=== PATIENT | female | born 1995 | race Caucasian/White ===

== ENCOUNTER 2022-11-06 14:22 | Emergency (ER) | payer OTHER ==
[~2022-11-06] VITALS: Ht 162.6 cm; Wt 59.0 kg
[2022-11-06 14:22] VITALS: BP 147/106
--- NOTE | 2022-11-06 14:22 | NUR ---
ARRIVAL PT AMBULATES TO ED6 WITH C/O STERNAL CHEST PAIN THAT RADIATES TO LEFT SHOULDER THAT STARTED APPROX. 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 PT STATES SHE HAS A HX OF HTN AND ANXIETY, AND IS UNSURE IF EITHER ARE CAUSING THE PAIN. PT STATES PAIN IS OFF AND ON IN NATURE. RATES PAIN 9/10 DESCRIBED SHARP STABBING. VITALS OBTAINED. NOTIFIED OF PTS ARRIVAL.
[2022-11-06] MEDS ORDERED: TORADOL IM STA (14:34)
--- NOTE | 2022-11-06 14:36 | PCM.EKG ---
[facility] Test Date: 2022-11-06 Pat Name: SURYA DE LA VEGA Department: ER Room: Gender: F Director Of Email Marketing: ANI : 1995 Requested By: LENA ALVAREZ Order Number: [id number] Reading MD: Tylor Alvarez Measurements Intervals [place] Rate: 75 P: 74 MA: 129 QRS: 68 QRSD: 82 T: 48 QT: 402 QTc: 449 Interpretive Statements Sinus rhythm Compared to ECG 01/16/2018 14:50:38 No significant changes Electronically Signed On 11-07-2022 02:38:09 CDT by Tylor Alvarez Please click the below link to view image of tracing.
[2022-11-06] MEDS ORDERED: TORADOL ONE (14:39)
[2022-11-06 14:47] LABS: BASOPHIL % 0.7 % (0.0-0.2); EOSINOPHIL # 0.3 10^3/uL (0.0-0.2); EOSINOPHIL % 5.1 % (0.0-5.0); LYMPHOCYTES # 1.79 10^3/uL1 (1.0-4.8); LYMPHOCYTES % 32.5 % (24.0-44.0); MEAN CORP HGB 29.8 pg (26-34); MONOCYTES # 0.4 10^3/uL (0.3-0.8); MONOCYTES % 6.4 % (5.0-12.0); NEUTROPHILS % 55.1 % (41.0-85.0); RED CELL DISTRIBUTION WIDTH 11.8 % (11.5-14.5)
[2022-11-06 15:09] LABS: CARBON DIOXIDE 27.9 mmol/L (20.0-32); GLUCOSE 89 mg/dL (70-110)
[2022-11-06 15:13] VITALS: BP 131/91
--- NOTE | 2022-11-06 15:36 | DIREP ---
PROCEDURE:CHEST 1 VIEW COMPARISON:None. INDICATIONS:cp FINDINGS: LUNGS/PLEURA:No significant pulmonary parenchymal abnormalities. No effusion or pneumothorax. VASCULATURE:Normal. Unremarkable pulmonary vasculature. CARDIAC:Heart size is normal. MEDIASTINUM:Normal. No visible mass or adenopathy. BONES:Mild, right convexity, mid thoracic curvature. No acute abnormality. OTHER:Negative. CONCLUSION: No acute cardiopulmonary abnormality. Dictated by: Aba Aguilar MD on 11/06/2022 at 03:34 PM
--- NOTE | 2022-11-06 16:15 | ER.PDOC ---
General Chief Complaint: Chest Pain-Cardiac Nature Stated Complaint: POSSIBLE HIGH BP/CP Time seen by MD: 14:25 Source: patient, family Exam Limitations: no limitations History of Present Illness Initial Comments Patient is a 27-year-old female with a past medical history of anxiety hypertension and depression who comes in for having an episode of elevated blood pressure 20 minutes prior to arrival and chest pain as well. 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 Patient states that she went and saw all the school nurse school nurse took her blood pressure and it was systolics 180/110 the school nurse said you have to go immediately to the ER. Thus patient came to the ER. She does not know what makes her symptoms better or worse. Allergies: Coded Allergies: No Known Allergies (Unverified , 07/24/20) Past Medical History Medical History: hypertension, other Surgical History: other Family History Significant Family History: no pertinent family hx Social History Smoking: other (Vapes) Alcohol Use: occassionally Drug Use: marijuana Reviewed Nursing Reviewed: Vital Signs, Abn. Noted, Nursing Assessment Constitutional: no symptoms reported EENTM: no symptoms reported Respiratory: no symptoms reported Cardiovascular: chest pain (Hypertension) Gastrointestinal: no symptoms reported Genitourinary: no symptoms reported Musculoskeletal: no symptoms reported Skin: no symptoms reported Psychiatric/Neurological: anxiety Endocrine: no symptoms reported Hematologic/Lymphatic: no symptoms reported Physical Exam General Appearance: Anxious HEENT: PERRL/EOMI, Normal ENT Inspection, TMs Normal, Pharynx Normal Neck: Non-Tender, Full Range of Motion, Supple, Normal Inspection Respiratory: lungs clear, normal breath sounds, no respiratory distress, no accessory muscle use Cardiovascular: Normal Peripheral Pulses, Other (Patient's blood pressure 147/106 and she has reproducible chest pain along the left sternal border and left lateral chest wall) Gastrointestinal: Normal Bowel Sounds, Non Tender, Soft Extremities: Non-Tender Neurologic/Psychiatric: No Motor/Sensory Deficits, Alert Skin: Normal Color Lymphatic: No Adenopathy Results/Orders Results/Orders Orders - LENA DANIELS MD EKG (11/06/22 14:34) Xr Chest 1v (11/06/22 14:34) Cbc With Auto Diff (11/06/22 14:34) Comprehensive Metabolic Panel (11/06/22 14:34) Troponin I High Sensitivity (11/06/22 14:34) Hcg Qualitative Serum (11/06/22 14:34) Ketorolac Tromethamine (Toradol) (11/06/22 14:34) Ketorolac Tromethamine (Toradol) (11/06/22 14:39) Vital Signs Date Time Temp Pulse Resp B/P (MAP) Pulse Ox O2 Delivery O2 Flow Rate FiO2 11/06/22 15:13 98.2 71 24 131/91 (104) 99 Room Air* 0 21 11/06/22 14:22 98.2 70 24 99 11/06/22 14:22 98.2 70 24 11/06/22 14:22 98.2 70 24 147/106 (120) 99 Room Air* 0 21 Administered Medications Medications (Trade) Dose Ordered Sig/Charlie Route PRN Reason Start Time Stop Time Status Last Admin Dose Admin Ketorolac Tromethamine (Toradol) 15 mg OT STAT IM 11/06/22 14:34 11/06/22 14:36 DC 11/06/22 14:44 15 MG Laboratory Tests Test 11/06/22 14:42 White Blood Count 5.5 10^3/uL (4.5-11.0) Red Blood Count 4.97 10^6/uL (4.00-5.20) Hemoglobin 14.8 g/dL (12.0-15.0) Hematocrit 43.8 % (36.0-46.0) Mean Corpuscular Volume 88.1 fL (78-100) Mean Corpuscular Hemoglobin 29.8 pg (26-34) Mean Corpuscular Hemoglobin Concent 33.8 g/dL (33-36.5) Red Cell Distribution Width 11.8 % (11.5-14.5) Platelet Count 270 10^3/uL (150-400) Mean Platelet Volume 9.4 fL (7.8-11.0) Neutrophils (%) (Auto) 55.1 % (41.0-85.0) Lymphocytes (%) (Auto) 32.5 % (24.0-44.0) Monocytes (%) (Auto) 6.4 % (5.0-12.0) Neutrophils # (Auto) 3.0 10^3/uL (1.8-7.7) Lymphocytes # (Auto) 1.79 10^3/uL1 (1.0-4.8) Monocytes # (Auto) 0.4 10^3/uL (0.3-0.8) Absolute Immature Granulocyte (auto 0.01 10^3 u/L (0-2) Absolute Eosinophils (auto) 0.3 10^3/uL (0.0-0.2) H Immature Granulocytes % 0.20 % (0.00-0.50) Eosinophils % 5.1 % (0.0-5.0) H Basophils % 0.7 % (0.0-0.2) H Basophils # 0.0 10^3/uL (0.0-0.1) Sodium Level 139 mmol/L (132-145) Potassium Level 4.7 mmol/L (3.6-5.2) Chloride Level 104.0 mmol/L (96-109) Carbon Dioxide Level 27.9 mmol/L (20.0-32) Anion Gap 11.8 Blood Urea Nitrogen 13 mg/dL (7-18) Creatinine 1.03 mg/dL (0.59-1.40) Estimated GFR () 77.8 (>/=60) Est GFR (CKD-EPI)(Non-Afr [place]) 64.3 (>/=60) BUN/Creatinine Ratio 12.0 (10.0-20.0) Glucose Level 89 mg/dL (70-110) Calcium Level 9.0 mg/dL (8.4-10.5) Total Bilirubin 0.6 mg/dL (0.2-1.0) Aspartate Amino Transferase (AST) 18 U/L (0-35) Alanine Aminotransferase (ALT) 16 U/L (12-78) Alkaline Phosphatase 69 U/L (50-136) Troponin I High Sensitivity < 4 ng/L (0-50) Total Protein 7.3 g/dL (6.4-8.2) Albumin 4.1 g/dL (3.4-5.0) Globulin 3.2 Albumin/Globulin Ratio 1.281 Serum HCG, Qualitative NEGATIVE (NEGATIVE) Progress Progress Patient here with chest pain most likely costochondritis however We will rule out ACS and other cardiopulmonary issues with EKG labs chest x-ray and just continue to monitor. We will also give ketorolac for symptom control. School nurse apparently already gave aspirin. My interpretation of patient's work-up is as follows looking at the patient's chest x-ray I see nothing acute radiology later agreed looking at the chemistry everything is within normal limits including the troponin.Patient CBC all within normal limits patient is not . Looking at patient's EKG she has a heart rate of 75 sinus rhythm no STEMI and a QTc of 449. He can find more information on the computer readout. [id number] states that her symptoms are completely gone she feels great and is ready to go home. She voiced understanding when to follow-up and when to return to the ER. Do believe that this to be costochondritis will discharge patient with ketorolac. I do also believe that anxiety exacerbated symptoms. ER DEPART Departure Time of Disposition: 16:14 Disposition: 01 HOME / SELF CARE / HOMELESS Impression: Primary Impression: Costochondritis Condition: Improved Patient Instructions: Costochondritis Referrals: KEO AGUILA MD (PCP) PRIMARY CARE PROVIDER Additional Instructions: Follow-up with your primary care provider within the next week. If you have any new, persistent, or worsening symptoms or concerns seek medical attention. Please take all medications as prescribed. Duration or Time Spent with Pa: 35 LENA DANIELS MD November 06, 2022 16:15
== END 2022-11-06 16:17 | disposition home or self-care (01) ==
LOC: ER 14:22
DX: M94.0 Chondrocostal junction syndrome [Tietze] (principal); I10 Essential (primary) hypertension; F41.9 Anxiety disorder, unspecified; F32.A Depression, unspecified; F12.90 Cannabis use, unspecified, uncomplicated
CPT/HCPCS: 99285; 71045; 96372; 80053; 85025; 36415; 84484; 84703; 93005; J1885